=== PATIENT | male | born 1985 ===

== ENCOUNTER 2022-10-06 12:08 | Emergency (ER) | payer OTHER ==
[~2022-10-06] VITALS: Ht 172.7 cm; Wt 68.0 kg
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
[2022-10-06] MEDS ORDERED: HYDROCODONE/APAP 5-325MG TABLET PO ONE (12:30)
[2022-10-06] MEDS ORDERED: CYCLOBENZAPRINE HCL 10 MG TABLET PO ONE (12:30)
[2022-10-06] MEDS ORDERED: CYCLOBENZAPRINE HCL 10 MG TABLET ONE (13:12)
[2022-10-06] MEDS ORDERED: HYDROCODONE/APAP 5-325MG TABLET ONE (13:12)
--- NOTE | 2022-10-06 13:53 | NUR ---
Pt resting in gurney, appears comfortable and talking with family at bedside.
[2022-10-06] MEDS ORDERED: KETOROLAC TROMETHAMINE 60 MG INJ IM ONE ×2 (14:23→14:30)
[2022-10-06] MEDS ORDERED: CYCL10TA9 PO (14:32)
[2022-10-06] MEDS ORDERED: IBUP-1957 PO (14:32)
--- NOTE | 2022-10-06 14:45 | NUR ---
Patient discharged to home in stable condition with family. Written and verbal after care instructions given. Patient verbalizes understanding of instructions. Stressed follow up or return to ER for worsening s/s.
== END 2022-10-06 14:56 | disposition home or self-care (01) ==
LOC: ER 12:10
DX: M62.830 Muscle spasm of back (principal); M54.9 Dorsalgia, unspecified; V43.52XA Car driver injured in collision with other type car in traffic accident, initial encounter; Y92.411 Interstate highway as the place of occurrence of the external cause
CPT/HCPCS: 99283; 96372; J1885; A4663